=== PATIENT | male | born 1945 | race Caucasian/White ===

== ENCOUNTER → 2017-06-12 | Outpatient (CLI) | payer BC, OTHER ==
[~2017-06-12] MED LIST: ACTOS45 MG PO; APIDRA SOL100 UNIT/1 SC; ASPIR-LOW81 MG PO; ASPIRIN; ASPIRIN E.C.81 M2 PO; ASPIRIN325 MG PO; BAYER BACK & B1 EACH PO; BYSTOLIC10 MG PO; CIPRO500 MG PO; CLEOCIN300 MG PO; CLOPIDOGREL75 MG PO; Cleocin IV; Diabeta,Micronase PO; GLYBURIDE; GLYBURIDE-METF1 EAC1 PO; GLYBURIDE5 MG PO; HUMALOG100 UNIT/1 SC; HUMALOG100 UNIT/2 SC; HYZAAR 100-21 TABLET PO; JANUMET 50/11 TABLET PO; LEVEMIR FL100 UNIT/1 SC; LEVEMIR FL100 UNITS/ SC; LEVEMIR100 UNIT/2 SC; METOPROLOL TART25 MG PO; MIRALAX17 GM PO; MIRALAX255 GM PO; NITROSTAT0.4 MG SL; OMEPRAZOLE; OMEPRAZOLE20 M2 PO; OXYCODONE HCL15 MG PO; OXYCONTIN30 MG PO; PRILOSEC20 MG PO; PROTONIX40 MG PO; PriLOSEC PO; TRAMADOL HCL50 MG PO; VANCOMYCIN100 MG/M2 IV; VICODIN ES 7.51 EAC1 PO; Vicodin,Norco 5/325 PO
== END | disposition home or self-care (01) ==
LOC: NUC 08:00
DX: R10.9 Unspecified abdominal pain (principal); K81.9 Cholecystitis, unspecified
CPT/HCPCS: 78227; A9537; J2805